=== PATIENT | male | born 1990 | race Caucasian/White ===

== ENCOUNTER 2020-01-11 14:30 | Emergency (ER) | payer SELFPAY ==
[2020-01-11] MEDS ORDERED: ONDANSETRON 4 MG/2 ML VIAL ONE (15:01)
[2020-01-11] MEDS ORDERED: MORPHINE 4 MG/ML SYR ONE (15:01)
[2020-01-11 15:09] LABS: Absolute Lymphocytes (CBC) 1.2 K/uL (0.7-4.9); Basophils % 0.3 % (0-1.3); Hematocrit 26.3 % (39.6-49.0); Lymphocytes % 23.6 % (15.3-44.8); MPV 7.8 fL (7.6-11.3); RBC Red Blood Cell Count 4.16 M/uL (4.33-5.43)
[2020-01-11 15:28] LABS: Potassium 3.7 mmol/L (3.5-5.1)
[2020-01-11] MEDS ORDERED: FENTANYL CITR 100 MCG/2 ML ONE (15:31)
[2020-01-11] MEDS ORDERED: KETOROLAC 30 MG/ML INJ ONE ×2 (15:32→16:09)
[2020-01-11 15:35] LABS: Urine Blood 3+ (NEG); Urine Glucose NEGATIVE (NEG); Urine Protein NEGATIVE (NEG)
[2020-01-11] MEDS ORDERED: HEPARIN 500 UNIT/5 ML SYR IV ONE (15:40)
[2020-01-11] MEDS ORDERED: HYDROMORPHONE HCL 0.5 MG/0.5 ML INJ ONE (15:51)
[2020-01-11] MEDS ORDERED: MAGNESIUM SULFATE 1 gm IVPB 1 GM/100 ML BAG IV ONE (16:09)
[2020-01-11] MEDS ORDERED: METHYLPREDNISOLONE 125 MG INJ ONE (16:21)
[2020-01-11] MEDS ORDERED: NA CHLORIDE 0.9% 1,000 ML ONE (16:21)
[2020-01-11] MEDS ORDERED: FAMOTIDINE 20 MG/2 ML VIAL IV ONE (16:21)
[2020-01-11] MEDS ORDERED: DIPHENHYDRAMINE 50 MG/ML VIAL ONE (16:21)
[2020-01-11] MEDS ORDERED: HYDROMORPHONE HCL 1 MG/ML INJ ONE (16:57)
--- NOTE | 2020-01-11 18:06 | ER ---
Nurse's Notes [facility] Name: David Everett Age: 29 yrs Sex: Male : 1990 Arrival Date: 01/11/2020 Time: 14:34 Bed 23 Private MD: Diagnosis: Left Flank PAin;Hematuria Presentation: 01/10 14:38 Chief complaint: Patient states: Severe left flank pain for 2 hours. + N/V. Coronavirus ll1 screen: Proceed with normal triage. Patient denies a cough. Patient denies shortness of breath or difficulty breathing. Patient denies measured and/or subjective temperature greater than 100.4F prior to today's visit. Patient denies travel on a cruise ship or to a country the [facility] currently lists as an affected area. Patient denies contact with known and/or suspected case of COVID-19. Ebola Screen: Patient denies travel to an Ebola-affected area in the 21 days before illness onset. Initial Sepsis Screen: Does the patient meet any 2 criteria? HR > 90 bpm. No. Patient's initial sepsis screen is negative. Risk Assessment: Do you want to hurt yourself or someone else? Patient reports no desire to harm self or others. Onset of symptoms was January 11, 2020. 14:38 Method Of Arrival: Ambulatory ll1 14:38 Acuity: DESTIN 3 ll1 14:46 Initial Sepsis Screen: Does the patient have a suspected source of infection? No. ca1 Patient's initial sepsis screen is negative. Historical: - Allergies: 17:10 Lidocaine; ca1 17:10 Magnesium Sulfate; ca1 - PMHx: 14:40 chron's; Kidney stones; ll1 - PSHx: 14:40 Appendectomy; Cholecystectomy; ll1 - Immunization history:: Adult Immunizations up to date. - Social history:: Patient/guardian denies using alcohol, street drugs, tobacco products, Smoking status: Patient denies any tobacco usage or history of. Screenin:44 Abuse screen: Denies threats or abuse. Denies injuries from another. Nutritional ca1 screening: No deficits noted. Tuberculosis screening: No symptoms or risk factors identified. Fall Risk None identified. Assessment: 14:44 General: Appears in no apparent distress. uncomfortable, Behavior is calm, cooperative, ca1 appropriate for age. Pain: Complains of pain in left low back Pain radiates to groin Pain currently is 10 out of 10 on a pain scale. Pain began this morning. Neuro: Level of Consciousness is awake, alert, obeys commands, Oriented to person, place, time, situation. Cardiovascular: Heart tones S1 S2 present Capillary refill < 3 seconds Patient's skin is warm and dry. Respiratory: Airway is patent Respiratory effort is even, unlabored, Respiratory pattern is regular, symmetrical, Breath sounds are clear bilaterally. GI: Abdomen is flat, non-distended, Bowel sounds present X 4 quads. Abd is soft and non tender X 4 quads. Reports nausea. : No signs and/or symptoms were reported regarding the genitourinary system. EENT: No signs and/or symptoms were reported regarding the EENT system. Derm: Skin is intact, is healthy with good turgor, Skin is pink, warm \\T\\ dry. Musculoskeletal: Circulation, motion, and sensation intact. Capillary refill < 3 seconds. 15:17 Reassessment: Patient appears in no apparent distress at this time. Patient and/or ca1 family updated on plan of care and expected duration. Pain level reassessed. Patient is alert, oriented x 3, equal unlabored respirations, skin warm/dry/pink. 16:12 Reassessment: Pt c/o itching and hives. Stopped Mg. Notified provider. Meds given. ca1 16:21 Reassessment: Patient appears in no apparent distress at this time. Patient is alert, ca1 oriented x 3, equal unlabored respirations, skin warm/dry/pink. 17:13 Reassessment: CT pending. Pt unable to be still because of Pain. States, "I just had ca1 the dilaudid, can we wait 10-15 minutes before going to CT?". Reassessment: Patient appears in no apparent distress at this time. Patient is alert, oriented x 3, equal unlabored respirations, skin warm/dry/pink. 17:59 Reassessment: Pt states, "Can you ask the [employer]ANGER ATTACHER to give me another dose of the last pain ca1 medication that you give me before going to CT?". Notified provider. Provider says no. Informed pt. Pt states, "I am not going to do the CT without the pain med. I don't want to expose myself to radiation if I can't sit still and the images will not be good enough". Notified provider. 18:09 Reassessment: Pt states, "bring me the paper to sign, I will just have my mom take me ca1 home now". Notified provider. AMA signed. Vital Signs: 14:38 BP 165 / 89; Pulse 130; Resp 17; Temp 98.3; Pulse Ox 100% ; Pain 9/10; ll1 15:17 BP 156 / 87; Pulse 115; Resp 16 S; Pulse Ox 100% on R/A; ca1 16:02 BP 168 / 88; Pulse 117; Resp 19 S; Pulse Ox 100% on R/A; ca1 16:52 BP 140 / 88; Pulse 110; Resp 18 S; Pulse Ox 95% on R/A; ca1 17:43 BP 143 / 108; Pulse 102; Resp 18 S; Pulse Ox 97% ; ca1 ED Course: 14:34 Patient arrived in ED. mr 14:39 Triage completed. ll1 14:40 Arm band placed on. ll1 14:41 Stephanie Stephen [facility]-C [facility]. kb 14:41 Farooq Schmidt MD is Attending Physician. kb 14:43 Kiara Nickerson RN is Primary Nurse. ca1 14:44 Patient has correct armband on for positive identification. Placed in gown. Bed in low ca1 position. Call light in reach. Side rails up X 1. Pulse ox on. NIBP on. Warm blanket given. 14:56 Accessed PICC line. Clean \\T\\ dry. Dressing intact. Good blood return. Flushes easily. ss 18:10 No provider procedures requiring assistance completed. Patient did not have IV access ca1 during this emergency room visit. pt has PICC line PHLEBOTOMIST PRN. Administered Medications: 14:52 Drug: Zofran (Ondansetron) 4 mg Route: IVP; Site: right upper arm; ca1 15:20 Follow up: Response: No adverse reaction; Nausea is decreased ca1 14:55 Drug: morphine 4 mg {Note: rass 0.} Route: IVP; Site: PICC; ca1 15:22 Follow up: Response: No adverse reaction; Pain is unchanged, physician notified; RASS: ca1 Alert and Calm (0) 15:23 Drug: TORadol - Ketorolac 15 mg Route: IVP; Site: PICC; ca1 16:00 Follow up: Response: No adverse reaction; Pain is unchanged, physician notified ca1 15:26 Drug: fentaNYL (PF) 50 mcg {Note: rass - 0.} Route: IVP; Site: PICC; ca1 16:00 Follow up: Response: No adverse reaction; Pain is unchanged, physician notified ca1 15:47 Drug: Dilaudid 0.5 mg Route: IVP; Site: PICC; ss 17:00 Follow up: Response: No adverse reaction; Pain is unchanged, physician notified ca1 16:00 Drug: TORadol - Ketorolac 15 mg Route: IVP; Site: PICC; ca1 17:00 Follow up: Response: No adverse reaction; Pain is unchanged, physician notified ca1 16:05 Drug: Magnesium Sulfate 1 grams Route: IVPB; Infused Over: 1 hrs; Site: PICC; ca1 16:12 Drug: NS 0.9% 1000 ml Route: IV; Rate: 1000 ml; Site: PICC; ca1 18:00 Follow up: Response: No adverse reaction; IV Status: Completed infusion ca1 16:13 Drug: Benadryl 12.5 mg Route: IVP; Site: PICC; ca1 18:12 Follow up: Response: No adverse reaction ca1 16:15 Drug: SOLU-Medrol 125 mg Route: IVP; Site: PICC; ca1 18:12 Follow up: Response: No adverse reaction; Marked relief of symptoms ca1 16:19 Drug: Pepcid 20 mg Route: IVP; Site: PICC; ca1 18:12 Follow up: Response: No adverse reaction; Marked relief of symptoms ca1 16:51 Drug: Dilaudid 1 mg {Note: rass 0.} Route: IVP; Site: PICC; ca1 18:00 Follow up: Response: No adverse reaction; Pain is unchanged, physician notified ca1 Outcome: 18:10 AMA AMA form signed ca1 18:10 Condition: stable 18:11 Patient left the ED. ca1 Signatures: Stephanie Stephen, MIGUEL MEEHAN-Fany De La FuentePreeti pierre Karina Shipman RN RN ss Pepe Stanley jp3 Kiara Nickerson RN RN ca1 Zaire Washburn RN RN ll1 Corrections: (The following items were deleted from the chart) 16:24 16:21 BP 167 / 88; Pulse 117bpm; Resp 19bpm; Spontaneous; Pulse Ox 100% RA; ca1 ca1 18:10 17:59 Reassessment: Pt states, "Can you ask the [employer] AND [employer]ANGER ATTACHER to give me another dose of the last ca1 pain medication that you give me before going to CT?". Notified provider. Provider says no. Informed pt. Pt states, "I am not going to do the CT without the pain med. I don't want to expose myself to radiation if I can't sit still and the images will not be good enough". Notified provider ca1 18:10 17:43 BP 143 / 108; Pulse 102bpm; Pulse Ox 97%; jp3 ca1
--- NOTE | 2020-01-11 18:06 | EDPHYS ---
Physician Documentation [facility] Name: David Everett Age: 29 yrs Sex: Male : 1990 Arrival Date: 01/11/2020 Time: 14:34 Bed 23 Private MD: ED Physician Farooq Schmidt HPI: 01/10 15:04 This 29 yrs old Male presents to ER via Ambulatory with complaints of kb Abdominal Pain. 15:04 The patient complains of pain in the left flank. The pain radiates to the groin. Onset: kb The symptoms/episode began/occurred 2 hour(s) ago. Modifying factors: The symptoms are alleviated by nothing. the symptoms are aggravated by nothing. Associated signs and symptoms: Pertinent positives: hematuria, nausea, vomiting, Pertinent negatives: diarrhea, dizziness, dysuria, fever, urinary frequency, headache, pain radiating to the lower extremities. Severity of pain: At its worst the pain was severe in the emergency department the pain is unchanged. The patient has experienced similar episodes in the past, a few times. The patient has not recently seen a physician. 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 History of kidney stones. Historical: - Allergies: 17:10 Lidocaine; ca1 17:10 Magnesium Sulfate; ca1 - PMHx: 14:40 chron's; Kidney stones; ll1 - PSHx: 14:40 Appendectomy; Cholecystectomy; ll1 - Immunization history:: Adult Immunizations up to date. - Social history:: Patient/guardian denies using alcohol, street drugs, tobacco products, Smoking status: Patient denies any tobacco usage or history of. ROS: 15:03 Constitutional: Negative for fever, chills, and weight loss, ENT: Negative for injury, kb pain, and discharge, Cardiovascular: Negative for chest pain, palpitations, and edema, Respiratory: Negative for shortness of breath, cough, wheezing, and pleuritic chest pain, Abdomen/GI: Negative for abdominal pain, nausea, vomiting, diarrhea, and constipation, MS/Extremity: Negative for injury and deformity, Skin: Negative for injury, rash, and discoloration, Neuro: Negative for headache, weakness, numbness, tingling, and seizure. 15:03 Back: Positive for flank pain, on the left, radiated pain, left flank pain that radiates to left groin. . Exam: 15:03 Constitutional: This is a well developed, well nourished patient who is awake, alert, kb and in no acute distress. Head/Face: Normocephalic, atraumatic. Chest/axilla: Normal chest wall appearance and motion. Nontender with no deformity. No lesions are appreciated. Cardiovascular: Regular rate and rhythm with a normal S1 and S2. No gallops, murmurs, or rubs. Normal PMI, no JVD. No pulse deficits. Respiratory: Lungs have equal breath sounds bilaterally, clear to auscultation and percussion. No rales, rhonchi or wheezes noted. No increased work of breathing, no retractions or nasal flaring. Abdomen/GI: Soft, non-tender, with normal bowel sounds. No distension or tympany. No guarding or rebound. No evidence of tenderness throughout. Back: No spinal tenderness. No costovertebral tenderness. Full range of motion. Skin: Warm, dry with normal turgor. Normal color with no rashes, no lesions, and no evidence of cellulitis. MS/ Extremity: Pulses equal, no cyanosis. Neurovascular intact. Full, normal range of motion. Neuro: Awake and alert, GCS 15, oriented to person, place, time, and situation. Cranial nerves II-XII grossly intact. Motor strength 5/5 in all extremities. Sensory grossly intact. Cerebellar exam normal. Normal gait. Vital Signs: 14:38 BP 165 / 89; Pulse 130; Resp 17; Temp 98.3; Pulse Ox 100% ; Pain 9/10; ll1 15:17 BP 156 / 87; Pulse 115; Resp 16 S; Pulse Ox 100% on R/A; ca1 16:02 BP 168 / 88; Pulse 117; Resp 19 S; Pulse Ox 100% on R/A; ca1 16:52 BP 140 / 88; Pulse 110; Resp 18 S; Pulse Ox 95% on R/A; ca1 17:43 BP 143 / 108; Pulse 102; Resp 18 S; Pulse Ox 97% ; ca1 MDM: 14:41 Patient medically screened. kb 15:01 Data reviewed: vital signs, nurses notes. Data interpreted: Pulse oximetry: on room air kb is 100 %. Interpretation: normal. ED course: Pt states his normal HGB is in the high 6s and ferritin level is nearly zero. Recently had a iron infusion. 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 . 15:43 ED course: CT called, pt unable to lay still for CT due to pain. Dilaudid ordered, RN afsaneh took to CT to medicate. 18:03 ED course: Pt now does not want the CT because of risk of radiation. US and KUB kb ordered. Pt wants to leave AMA. . 01/10 14:49 Order name: Basic Metabolic Panel; Complete Time: 15:29 kb 01/10 14:50 Order name: CBC with Diff kb 01/10 14:55 Order name: Urine Dipstick--Ancillary (enter results); Complete Time: 15:38 eb 01/10 14:42 Order name: Urine Dipstick-Ancillary (obtain specimen); Complete Time: 14:58 kb 01/10 14:49 Order name: IV Start; Complete Time: 14:56 kb Administered Medications: 14:52 Drug: Zofran (Ondansetron) 4 mg Route: IVP; Site: right upper arm; ca1 15:20 Follow up: Response: No adverse reaction; Nausea is decreased ca1 14:55 Drug: morphine 4 mg {Note: rass 0.} Route: IVP; Site: PICC; ca1 15:22 Follow up: Response: No adverse reaction; Pain is unchanged, physician notified; RASS: ca1 Alert and Calm (0) 15:23 Drug: TORadol - Ketorolac 15 mg Route: IVP; Site: PICC; ca1 16:00 Follow up: Response: No adverse reaction; Pain is unchanged, physician notified ca1 15:26 Drug: fentaNYL (PF) 50 mcg {Note: rass - 0.} Route: IVP; Site: PICC; ca1 16:00 Follow up: Response: No adverse reaction; Pain is unchanged, physician notified ca1 15:47 Drug: Dilaudid 0.5 mg Route: IVP; Site: PICC; ss 17:00 Follow up: Response: No adverse reaction; Pain is unchanged, physician notified ca1 16:00 Drug: TORadol - Ketorolac 15 mg Route: IVP; Site: PICC; ca1 17:00 Follow up: Response: No adverse reaction; Pain is unchanged, physician notified ca1 16:05 Drug: Magnesium Sulfate 1 grams Route: IVPB; Infused Over: 1 hrs; Site: PICC; ca1 16:12 Drug: NS 0.9% 1000 ml Route: IV; Rate: 1000 ml; Site: PICC; ca1 18:00 Follow up: Response: No adverse reaction; IV Status: Completed infusion ca1 16:13 Drug: Benadryl 12.5 mg Route: IVP; Site: PICC; ca1 18:12 Follow up: Response: No adverse reaction ca1 16:15 Drug: SOLU-Medrol 125 mg Route: IVP; Site: PICC; ca1 18:12 Follow up: Response: No adverse reaction; Marked relief of symptoms ca1 16:19 Drug: Pepcid 20 mg Route: IVP; Site: PICC; ca1 18:12 Follow up: Response: No adverse reaction; Marked relief of symptoms ca1 16:51 Drug: Dilaudid 1 mg {Note: rass 0.} Route: IVP; Site: PICC; ca1 18:00 Follow up: Response: No adverse reaction; Pain is unchanged, physician notified ca1 Disposition: 19:36 Co-signature as Attending Physician, Farooq Schmidt MD. [email or web address] Disposition: 01/11/20 18:05 Patient has left against medical advice. Impression: Left Flank PAin, Hematuria. - Patients states they are going to Home. - Condition is Stable. Follow up: Emergency Department; When: As needed; Reason: Worsening of condition. Follow up: Private Physician; When: 2 - 3 days; Reason: Recheck today's complaints, Continuance of care, Re-evaluation by your physician. - Problem is new. - Symptoms are unchanged. Signatures: Dispatcher [employer] [facility] Stephanie Stephen, DAIRY HELPER-C ZORAN-Karina Ghotra RN RN ss Kiara Nickerson RN RN ca1 Zaire Washburn RN RN ll1 Farooq Schmidt MD MD 7 Corrections: (The following items were deleted from the chart) 18:02 15:23 Stone Protocol+CT.RAD.BRZ ordered. [facility] 18:11 18:05 01/11/2020 18:05 Patients has left against medical advice. Impression: Left Flank ca1 PAin; Hematuria. Patient states they are going to Home. Condition is Stable. Follow up: Emergency Department; When: As needed; Reason: Worsening of condition. Follow up: Private Physician; When: 2 - 3 days; Reason: Recheck today's complaints, Continuance of care, Re-evaluation by your physician. Problem is new. Symptoms are unchanged. kb
[2020-01-11 18:25] VITALS: TEMP 98.3
[2020-01-11 18:31] VITALS: BP 143/108; O2SAT 97
[2020-01-11 20:09] LABS: Anisocytosis 1+; Blood Morphology Comment NOTED (NOT SEEN); Hypochromasia 2+; Platelet Estimate ADEQ; Urine White Blood Cell Casts OK
== END 2020-01-11 18:11 | disposition left against medical advice (07) ==
LOC: ER 14:30
DX: R31.9 Hematuria, unspecified (principal); Z87.442 Personal history of urinary calculi; Z88.5 Allergy status to narcotic agent; Z91.048 Other nonmedicinal substance allergy status
CPT/HCPCS: 36415; 80048; 81003; 85025; 96361; 96374; 96375; 99284; J1170; J1200; J1642; J2405; J2930; J3010; J3475; J7030